=== PATIENT | male | born 1990 | race Caucasian/White ===

== ENCOUNTER 2023-11-17 09:22 | Emergency (ER) | payer BC ==
[~2023-11-17] VITALS: Ht 188 cm; Wt 97.8 kg
[2023-11-17 10:37] VITALS: BP 113/60; PULSE 79; RESP 18; TEMP 98.1; O2SAT 99
[2023-11-17] MEDS ORDERED: CEPH500C PO (10:54)
[2023-11-17] MEDS ORDERED: IBUP1TAB5 PO (10:54)
== END 2023-11-17 11:22 | disposition home or self-care (01) ==
LOC: ER 09:22
DX: S01.412A Laceration without foreign body of left cheek and temporomandibular area, initial encounter (principal); W11.XXXA Fall on and from ladder, initial encounter; Y93.89 Activity, other specified; Y92.89 Other specified places as the place of occurrence of the external cause; Y99.8 Other external cause status